=== PATIENT | male | born 1985 | race Hispanic/Latino ===

== ENCOUNTER 2020-06-14 04:02 | Emergency (ER) | payer SELFPAY ==
[2020-06-14] MEDS ORDERED: GUAIFENESIN-DM 200/20 MG 10 ML ONE (04:09)
[2020-06-14] MEDS ORDERED: ACETAMINOPHEN 325 MG TAB ONE (04:10)
[2020-06-14 04:23] LABS: BASOPHILS % (AUTO) 0.3 % (0.0-5.0); EOSINOPHILS % (AUTO) 0.5 % (0.0-8.0); HEMATOCRIT 42.9 % (42-54); LYMPHOCYTES % (AUTO) 19.7 % (21.0-51.0); MEAN CORPUSCULAR HEMOGLOBIN 29.6 pg (27.0-33.0); MEAN CORPUSCULAR VOLUME 86.8 fL (79-99); MONOCYTES % (AUTO) 6.4 % (3.0-13.0); NEUTROPHILS % (AUTO) 72.7 % (40.0-77.0); PLATELET COUNT (AUTO) 212 K/uL (130-400); RED BLOOD CELL COUNT(AUTO) 4.94 MIL/uL (4.50-6.20); RED CELL DISTRIBUTION WIDTH 11.9 % (11.0-15.5)
[2020-06-14 04:29] LABS: ABG BASE EXCESS -2.5 mmol/L (-2.0-3.0); ABG HCO3 18.5 mmol/L (21.0-28.0); ABG OXYGEN SATURATION 97.7 % (95.0-99.0); ABG PCO2 24 mmHg (35-48)
[2020-06-14 04:33] LABS: CREATININE 1.2 mg/dL (0.5-1.5); POTASSIUM 3.8 mmol/L (3.5-5.1)
[2020-06-14 04:39] LABS: BILIRUBIN,TOTAL 0.4 mg/dL (0.2-1.0); TOTAL PROTEIN, SERUM 8.5 g/dL (6.0-8.3)
[2020-06-14] MEDS ORDERED: GUAIFENESIN-CODEINE 5 ML SYRUP ONE ×2 (04:50→04:51)
[2020-06-14] MEDS ORDERED: ALBUTEROL INHALER 90MCG/INH IH ONE (04:59)
[2020-06-17] MEDS ORDERED: LISI1TAB32 PO (03:02)
== END 2020-06-14 06:21 | disposition home or self-care (01) ==
LOC: EDH 04:02
DX: U07.1 COVID-19 (principal); R06.02 Shortness of breath; J12.82 Pneumonia due to coronavirus disease 2019; F41.9 Anxiety disorder, unspecified; F45.8 Other somatoform disorders; E11.65 Type 2 diabetes mellitus with hyperglycemia; I10 Essential (primary) hypertension
CPT/HCPCS: 36415; 36600; 71045; 80053; 82010; 82803; 83605; 84484; 85025; 87040; 87426; 87804; 93005

== ENCOUNTER 2020-06-16 20:36 | Observation (INO) | payer OTHER, SELFPAY ==
[~2020-06-16] VITALS: Ht 185.4 cm; Wt 126.1 kg
[2020-06-16] MEDS ORDERED: MAG/ALUM/SIMETH 30 ML UDCUP ONE (20:59)
[2020-06-16] MEDS ORDERED: LIDOCAINE HCL 2% VISCOUS 15 ML UDCUP ONE (20:59)
[2020-06-16] MEDS ORDERED: ACETAMINOPHEN WITH CODEINE 1 TAB TAB ONE ×2 (21:00→21:18)
[2020-06-16] MEDS ORDERED: LIDOCAINE HCL-MPF 1% 2ML VIAL ONE (21:05)
[2020-06-16] MEDS ORDERED: AZITHROMYCIN 250 MG TABLET PO ONE (21:06)
[2020-06-16] MEDS ORDERED: CEFTRIAXONE 1G VIAL ONE (21:06)
[2020-06-16 21:43] LABS: BASOPHILS % (AUTO) 0.2 % (0.0-5.0); EOSINOPHILS % (AUTO) 0.9 % (0.0-8.0); HEMATOCRIT 38.8 % (42-54); LYMPHOCYTES % (AUTO) 19.3 % (21.0-51.0); MEAN CORPUSCULAR HEMOGLOBIN 29.6 pg (27.0-33.0); MEAN CORPUSCULAR HGB CONC 34.3 g/dL (32.0-36.0); MEAN CORPUSCULAR VOLUME 86.2 fL (79-99); MONOCYTES % (AUTO) 7.7 % (3.0-13.0); NEUTROPHILS % (AUTO) 71.7 % (40.0-77.0); PLATELET COUNT (AUTO) 221 K/uL (130-400); WHITE BLOOD COUNT (AUTO) 5.7 K/uL (4.8-10.8)
[2020-06-16 21:54] LABS: POTASSIUM 4.2 mmol/L (3.5-5.1)
[2020-06-16 21:57] LABS: ABG HCO3 20.7 mmol/L (21.0-28.0); ABG PCO2 34 mmHg (35-48)
[2020-06-16 21:59] LABS: ALBUMIN 3.7 g/dL (3.5-5.0); BILIRUBIN,TOTAL 0.4 mg/dL (0.2-1.0); TOTAL PROTEIN, SERUM 8.3 g/dL (6.0-8.3)
[2020-06-16] MEDS ORDERED: ASPIRIN 325 MG TABLET ONE (22:10)
[2020-06-16] MEDS ORDERED: DEXAMETHASONE SOD PHOSPHATE 10MG/ML 1ML VIAL ONE (22:10)
[2020-06-16] MEDS ORDERED: ONDANSETRON 4MG INJ IV PRN (23:15)
[2020-06-16] MEDS ORDERED: ACETAMINOPHEN 325 MG TAB PO PRN ×2 (23:15)
[2020-06-16 23:41] LABS: HEMOGLOBIN A1C 9.8 % (4.0-6.0)
[2020-06-16 23:44] LABS: CRP QUANTITATIVE 176.9 mg/L (0.00-9.0)
[2020-06-17] MEDS ORDERED: IBUP-2070 PO ×2 (02:56→03:02)
[2020-06-17] MEDS ORDERED: ALBUHFA IH (03:02)
[2020-06-17] MEDS ORDERED: GLYB5TAB8 PO (03:02)
[2020-06-17] MEDS ORDERED: METF-446 PO (03:02)
[2020-06-17] MEDS ORDERED: IVER3TAB PO (03:02)
[2020-06-17] MEDS ORDERED: LISI1TAB49 PO (03:02)
[2020-06-17 04:00] VITALS: BP 130/87
[2020-06-17 05:02] VITALS: BP 130/87
[2020-06-17] MEDS: GLIPIZIDE 5 MG TABLET PO SCH (06:46)
[2020-06-17] MEDS: METFORMIN HCL 500 MG TABLET PO SCH ×2 (08:11→16:13)
[2020-06-17] MEDS: HYDROCHLOROTHIAZIDE 25 MG TABLET PO SCH (08:12)
[2020-06-17] MEDS: ENOXAPARIN SODIUM 40 MG/0.4 ML SYRINGE SQ SCH (08:13)
[2020-06-17] MEDS: FAMOTIDINE 20MG VIAL IV SCH ×2 (08:13→20:13)
[2020-06-17 08:30] VITALS: BP 129/86
[2020-06-17] MEDS ORDERED: LISINOPRIL 10 MG TABLET PO SCH (09:00)
[2020-06-17 11:00] VITALS: BP 108/66
[2020-06-17] MEDS ORDERED: ERGOCALCIFEROL (VITAMIN D2) 50,000 UNIT CAPSULE PO SCH (11:00)
[2020-06-17] MEDS ORDERED: BENZ-17 PO (11:14)
[2020-06-17] MEDS ORDERED: ONDA4TAB4 PO (11:20)
[2020-06-17] MEDS: GUAIFENESIN-DM 200/20 MG 10 ML PO PRN ×3 (11:27→21:44)
[2020-06-17] MEDS: BENZONATATE 100 MG CAPSULE PO SCH ×2 (13:05→20:13)
[2020-06-17 16:00] VITALS: BP 87/49
[2020-06-17] MEDS ORDERED: DEXTROSE 50%-WATER 50 ML DISP.SYRIN IV PRN (17:00)
[2020-06-17] MEDS ORDERED: GLUCAGON 1MG KIT 1 MG ML IM PRN (17:00)
[2020-06-17 19:00] VITALS: BP 94/58
[2020-06-17] MEDS: ACETYLCYSTEINE 600 MG CAPSULE PO SCH (20:13)
[2020-06-17] MEDS ORDERED: TEMAZEPAM 7.5 MG CAPSULE PO PRN (20:15)
[2020-06-17] MEDS: INSULIN HUMULIN R 100 UNIT/ML 3ML SQ SCH (21:47)
[2020-06-18] VITALS: BP 92/51
[2020-06-18] MEDS: GUAIFENESIN-CODEINE 5 ML SYRUP PO PRN ×2 (02:10→10:19)
[2020-06-18 04:00] VITALS: BP 87/55
[2020-06-18 04:57] LABS: BASOPHILS % (AUTO) 0.2 % (0.0-5.0); EOSINOPHILS % (AUTO) 0.3 % (0.0-8.0); HEMATOCRIT 37.5 % (42-54); LYMPHOCYTES % (AUTO) 28.5 % (21.0-51.0); MEAN CORPUSCULAR HEMOGLOBIN 29.5 pg (27.0-33.0); MEAN CORPUSCULAR HGB CONC 33.3 g/dL (32.0-36.0); MEAN CORPUSCULAR VOLUME 88.4 fL (79-99); MONOCYTES % (AUTO) 9.4 % (3.0-13.0); NEUTROPHILS % (AUTO) 61.1 % (40.0-77.0); PLATELET COUNT (AUTO) 267 K/uL (130-400); RED BLOOD CELL COUNT(AUTO) 4.24 MIL/uL (4.50-6.20); RED CELL DISTRIBUTION WIDTH 12.1 % (11.0-15.5); WHITE BLOOD COUNT (AUTO) 5.8 K/uL (4.8-10.8)
[2020-06-18 05:15] LABS: CREATININE 1.3 mg/dL (0.5-1.5); CRP QUANTITATIVE 90.6 mg/L (0.00-9.0); POTASSIUM 3.7 mmol/L (3.5-5.1)
[2020-06-18] MEDS: GLIPIZIDE 5 MG TABLET PO SCH (06:51)
[2020-06-18] MEDS: INSULIN HUMULIN R 100 UNIT/ML 3ML SQ SCH (06:56)
[2020-06-18] MEDS: BENZONATATE 100 MG CAPSULE PO SCH (08:35)
[2020-06-18] MEDS: ACETYLCYSTEINE 600 MG CAPSULE PO SCH (08:35)
[2020-06-18] MEDS: METFORMIN HCL 500 MG TABLET PO SCH (08:35)
[2020-06-18] MEDS: FAMOTIDINE 20MG VIAL IV SCH (08:35)
[2020-06-18] MEDS: ENOXAPARIN SODIUM 40 MG/0.4 ML SYRINGE SQ SCH (08:36)
[2020-06-18] MEDS ORDERED: LISINOPRIL 10 MG TABLET PO SCH (09:00)
[2020-06-18] MEDS ORDERED: ZINC SULFATE 220 CAPSULE PO SCH (09:00)
[2020-06-18] MEDS ORDERED: ASCORBIC ACID 500 MG TAB PO SCH (09:00)
[2020-06-18] MEDS: HYDROCHLOROTHIAZIDE 25 MG TABLET PO SCH (09:00)
== END 2020-06-18 16:00 | disposition home or self-care (01) ==
LOC: EDH 20:36 → EDHIP 20:37 → 4BH 06-17 03:12
PROVIDERS: ADMIT Internal Medicine; ATTEND Internal Medicine
DX: U07.1 COVID-19 (principal); J12.82 Pneumonia due to coronavirus disease 2019; E11.9 Type 2 diabetes mellitus without complications; I10 Essential (primary) hypertension; E78.5 Hyperlipidemia, unspecified; E66.01 Morbid (severe) obesity due to excess calories; F41.9 Anxiety disorder, unspecified; Z79.84 Long term (current) use of oral hypoglycemic drugs; Z79.899 Other long term (current) drug therapy; Z68.41 Body mass index [BMI] 40.0-44.9, adult
CPT/HCPCS: 36415 ×2; 36600; 71045; 80048; 80053; 82010; 82728; 82803; 82948 ×6; 83036; 83605; 83615; 84145; 85025 ×2; 85378 ×2; 86140 ×2; 96372 ×2; 96374; 96375; 96376 ×2; 99291; G0378 ×40; J0696; J1100; J1650 ×2; J1815 ×2; J2405; J3490 ×4

== ENCOUNTER 2020-12-15 15:40 | Inpatient (IN) | payer OTHER ==
[~2020-12-15] VITALS: Ht 185.4 cm; Wt 137.3 kg
[~2020-12-15 15:40] MED LIST: ALBUHFA IH; BENZ-17 PO; GLYB5TAB8 PO; IBUP-2070 PO; IVER3TAB PO; LISI1TAB32 PO; METF-446 PO; ONDA4TAB4 PO
[2020-12-15] MEDS ORDERED: CEFAZOLIN SODIUM 1 GM VIAL ONE (16:19)
[2020-12-15] MEDS ORDERED: TETANUS/DIPHTHERIA TOXOID [ADULT] 0.5 ML VIAL IM ONE (17:00)
[2020-12-15] MEDS ORDERED: MORPHINE 2 MG SYG IM ONE (17:00)
[2020-12-15] MEDS ORDERED: LIDOCAINE HCL 1% 20 ML VIAL INJ SCH (17:00)
[2020-12-15] MEDS ORDERED: ONDANSETRON 4MG INJ IVP ONE (17:00)
[2020-12-15] MEDS ORDERED: 0.9%NACL 50ML 50 ML IV ONE (17:16)
[2020-12-15 17:23] LABS: BASOPHILS % (AUTO) 1.4 % (0.0-5.0); EOSINOPHILS % (AUTO) 2.2 % (0.0-8.0); HEMATOCRIT 44.8 % (42-54); LYMPHOCYTES % (AUTO) 25.1 % (21.0-51.0); MEAN CORPUSCULAR HEMOGLOBIN 30.2 pg (27.0-33.0); MEAN CORPUSCULAR HGB CONC 34.4 g/dL (32.0-36.0); MEAN CORPUSCULAR VOLUME 87.8 fL (79-99); MONOCYTES % (AUTO) 8.2 % (3.0-13.0); NEUTROPHILS % (AUTO) 61.9 % (40.0-77.0); PLATELET COUNT (AUTO) 254 K/uL (130-400); RED CELL DISTRIBUTION WIDTH 11.9 % (11.0-15.5); WHITE BLOOD COUNT (AUTO) 5.9 K/uL (4.8-10.8)
[2020-12-15] MEDS: CEFAZOLIN SODIUM 1 GM VIAL IVP SCH ×2 (17:23→17:33)
[2020-12-15 17:37] LABS: CARBON DIOXIDE 21 mmol/L (21-32); CHLORIDE 98 mmol/L (101-111); CREATININE 1.1 mg/dL (0.5-1.5); GLOMERULAR FILTR. RATE CALC 82 mL/min (>60); GLUCOSE,RANDOM 389 mg/dL (70-105); POTASSIUM 4.3 mmol/L (3.5-5.1); SODIUM SERUM 136 mmol/L (136-145); UREA NITROGEN, BLOOD 14 mg/dL (7-18)
[2020-12-15 17:42] LABS: ALANINE AMINOTRANSFERASE 82 U/L (12-78); ALBUMIN 4.5 g/dL (3.5-5.0); ALCOHOL, BLOOD < 3 mg/dL (0-10); ASPARTATE AMINOTRANSFERASE 48 U/L (10-37); BILIRUBIN,TOTAL 0.5 mg/dL (0.2-1.0)
[2020-12-15 17:54] LABS: INR 0.96 (0.85-1.15); PROTHROMBIN TIME 10.5 SEC (9.6-11.6)
[2020-12-15 17:55] LABS: PARTIAL THROMBOPLASTIN TIME 24.1 SEC (26.3-35.5)
[2020-12-15 19:16] VITALS: BP 136/83
[2020-12-15] MEDS ORDERED: MORPHINE 4 MG SYG ONE (20:28)
[2020-12-15] MEDS: ONDANSETRON 4MG INJ IVP PRN ×2 (20:29→20:41)
[2020-12-15] MEDS: MORPHINE 2 MG SYG IVP PRN ×2 (20:29→20:41)
[2020-12-15 22:32] VITALS: BP 131/80
[2020-12-15] MEDS ORDERED: 0.9%NACL 100ML 100 ML ONE (23:01)
[2020-12-16] VITALS (17 sets, daily range): BP systolic 101–140; BP diastolic 58–85
[2020-12-16] MEDS: CEFAZOLIN SODIUM 1 GM VIAL IVP SCH ×3 (00:21→17:35)
[2020-12-16] MEDS ORDERED: LISI1TAB51 PO (08:28)
[2020-12-16] MEDS ORDERED: GLYB5TAB8 PO (08:28)
[2020-12-16] MEDS: MORPHINE 2 MG SYG IVP PRN (10:29)
[2020-12-16] MEDS: ONDANSETRON 4MG INJ IVP PRN (10:29)
[2020-12-16] MEDS ORDERED: KCL 20 MEQ ERTAB PO PRN (13:00)
[2020-12-16] MEDS ORDERED: DEXTROSE 50%-WATER 50 ML DISP.SYRIN IV PRN (13:00)
[2020-12-16] MEDS ORDERED: LIDOCAINE HCL-MPF 1% 2ML VIAL IV PRN (13:00)
[2020-12-16] MEDS ORDERED: POTASSIUM CHLORIDE 20MEQ/100ML 100 ML IV PRN (13:00)
[2020-12-16] MEDS ORDERED: GLUCAGON 1MG KIT 1 MG ML IM PRN (13:00)
[2020-12-16] MEDS ORDERED: POTASSIUM CHLORIDE 10% ELIXIR 20 MEQ/15 ML UDCUP PO PRN (13:00)
[2020-12-16] MEDS ORDERED: 0.9%NACL 1000ML 1,000 ML IV ONE (13:38)
[2020-12-16] MEDS ORDERED: GLYBURIDE 5 MG TABLET PO SCH (14:00)
[2020-12-16] MEDS ORDERED: LIDOCAINE HCL 1% 20 ML VIAL ONE (14:03)
[2020-12-16] MEDS ORDERED: FENTANYL CITRATE PF 50 MCG/1 ML 2ML VIAL ONE (14:04)
[2020-12-16] MEDS ORDERED: MIDAZOLAM HCL 1 MG/ML 2ML VIAL ONE (14:04)
[2020-12-16] MEDS ORDERED: 0.9%NACL 10ML VIAL ONE (14:14)
[2020-12-16] MEDS ORDERED: PROPOFOL 10 MG/ML 20ML VIAL IV ONE ×2 (14:20→14:42)
[2020-12-16] MEDS ORDERED: CEFAZOLIN SODIUM 1 GM VIAL ONE (14:39)
[2020-12-16] MEDS ORDERED: CEFAZOLIN SODIUM 1 GM VIAL IRRIG ONE (14:45)
[2020-12-16] MEDS ORDERED: INSULIN HUMULIN R 100 UNIT/ML 3ML SQ SCH (16:30)
[2020-12-16] MEDS ORDERED: METFORMIN HCL 500 MG TABLET PO SCH (17:00)
[2020-12-17] MEDS ORDERED: LISINOPRIL 20 MG TABLET PO SCH (09:00)
[2020-12-17] MEDS ORDERED: HYDROCHLOROTHIAZIDE 25 MG TABLET PO SCH (09:00)
== END 2020-12-16 19:30 | disposition home or self-care (01) | DRG 909 ==
LOC: EDH 15:40 → EDHIP 15:41 → 3BH 12-16 08:29
PROVIDERS: ADMIT Surgery Plastic and Reconstructive Surgery; ATTEND Surgery Plastic and Reconstructive Surgery
PROC: 0PBT0ZZ Excision of Right Finger Phalanx, Open Approach (ICD-10-PCS; principal; 2020-12-16 14:08)
DX: S68.110A Complete traumatic metacarpophalangeal amputation of right index finger, initial encounter (principal); X58.XXXA Exposure to other specified factors, initial encounter; Y93.89 Activity, other specified; Y92.89 Other specified places as the place of occurrence of the external cause; Y99.8 Other external cause status; E10.9 Type 1 diabetes mellitus without complications; I10 Essential (primary) hypertension; Z79.4 Long term (current) use of insulin
CPT/HCPCS: 36415; 71045; 73140; 80053; 82948; 85025; 85610; 85730; 87635; 90714; 93005; A4565; C1713; G0378; J0690; J2250; J2270; J2405; J2704; J3010; J7030

== ENCOUNTER 2020-12-27 10:45 | Emergency (ER) | payer SELFPAY ==
[~2020-12-27] VITALS: Ht 185.4 cm; Wt 136.1 kg
[~2020-12-27 10:45] MED LIST changes: -ALBUHFA IH; -BENZ-17 PO; -IBUP-2070 PO; -IVER3TAB PO; -LISI1TAB32 PO; +LISI1TAB51 PO; -ONDA4TAB4 PO
[2020-12-27 11:19] VITALS: BP 123/70
[2020-12-27] MEDS ORDERED: CEPH500B PO (12:26)
== END 2020-12-27 12:51 | disposition home or self-care (01) ==
LOC: EDH 10:45
DX: L08.9 Local infection of the skin and subcutaneous tissue, unspecified (principal); I10 Essential (primary) hypertension; E11.9 Type 2 diabetes mellitus without complications; Z79.84 Long term (current) use of oral hypoglycemic drugs; Z79.899 Other long term (current) drug therapy